=== PATIENT | male | born 1960 | race Caucasian/White ===

== ENCOUNTER 2016-05-21 18:30 | Emergency (ER) | payer BC ==
[~2016-05-21] VITALS: Ht 190.5 cm; Wt 108.8 kg
[~2016-05-21 18:30] MED LIST: COZAAR25 MG PO; FISH OIL1 GM PO; MIRAPEX0.125 MG PO; MOBIC7.5 MG PO; NORCO 325-5 MG1 TAB PO; PRILOSEC20 MG PO; PROVENTIL HFA6.7 GM INH; SEROQUEL25 MG PO; XYZAL5 MG PO; ZOLOFT25 MG PO
[2016-05-21] MEDS ORDERED: XYZAL5 MG PO (19:48)
[2016-05-21] MEDS ORDERED: SINGULAIR10 MG PO (19:49)
[2016-05-21] MEDS ORDERED: FLONASE16 GM NASBOTH (19:49)
[2016-05-21] MEDS ORDERED: ZOFRAN ODT8 MG PO (19:50)
[2016-05-21] MEDS ORDERED: ANTIVERT12.5 MG PO (19:50)
[2016-05-21] MEDS ORDERED: NEURONTIN300 MG PO (19:51)
== END 2016-05-21 19:31 | disposition short-term general hospital (02) ==
LOC: ER 18:30
DX: J45.901 Unspecified asthma with (acute) exacerbation (principal); Z79.899 Other long term (current) drug therapy
CPT/HCPCS: J2930